=== PATIENT | female | born 1935 | race Caucasian/White ===

== ENCOUNTER → 2017-09-07 | Outpatient (CLI) | payer OTHER, BC | LOC: BMCIMAGING 16:45 | PROVIDERS: ATTEND Internal Medicine | DX: R07.81 Pleurodynia (principal) ==

== ENCOUNTER → 2017-12-24 | Outpatient (CLI) | payer OTHER, BC | LOC: FIMAGING 09:44 | PROVIDERS: ATTEND Internal Medicine Endocrinology, Diabetes & Metabolism | DX: E04.2 Nontoxic multinodular goiter (principal) | CPT/HCPCS: 76536-PO ==

== ENCOUNTER → 2019-02-27 | Outpatient (CLI) | payer OTHER, BC | LOC: BMCIMAGING 12:43 | PROVIDERS: ATTEND Internal Medicine | DX: E28.39 Other primary ovarian failure (principal); E04.1 Nontoxic single thyroid nodule; Z78.0 Asymptomatic menopausal state; Z13.820 Encounter for screening for osteoporosis; K50.90 Crohn's disease, unspecified, without complications; M85.80 Other specified disorders of bone density and structure, unspecified site | CPT/HCPCS: 76536-PO ==